=== PATIENT | female | born 1945 | race Caucasian/White ===

== ENCOUNTER 2017-06-04 07:41 | Emergency (ER) | payer OTHER ==
[~2017-06-04] VITALS: Ht 165.1 cm; Wt 124.8 kg
[2017-06-04 09:25] VITALS: BP 141/65
== END 2017-06-04 09:25 | disposition home or self-care (01) ==
LOC: ED 07:41
DX: S81.812A Laceration without foreign body, left lower leg, initial encounter (principal); J45.909 Unspecified asthma, uncomplicated; I48.91 Unspecified atrial fibrillation; Z79.01 Long term (current) use of anticoagulants; Z86.79 Personal history of other diseases of the circulatory system; W54.0XXA Bitten by dog, initial encounter; Y93.89 Activity, other specified; Y99.8 Other external cause status; Y92.89 Other specified places as the place of occurrence of the external cause
CPT/HCPCS: 90715; J0690

== ENCOUNTER 2019-06-16 05:24 | Emergency (ER) | payer OTHER ==
[~2019-06-16] VITALS: Ht 165.1 cm; Wt 124.7 kg
[2019-06-16 07:28] LABS: PLATELET COUNT 359 x10^3mcL (130-400); RED CELL DISTRIBUTION WIDTH 13.3 % (11.5-14.5)
[2019-06-16 07:29] LABS: BASOPHIL % 0 % (0-2)
[2019-06-16 07:49] LABS: CALCIUM 9.9 mg/dL (8.5-10.1); CARBON DIOXIDE 25.9 mmol/L (21-32); CHLORIDE SERUM 101 mmol/L (98-107); CREATININE SERUM 0.7 mg/dL (0.6-1.0); GLUCOSE SERUM 142 mg/dL (74-106); POTASSIUM SERUM 3.9 mmol/L (3.5-5.1); SODIUM SERUM 139 mmol/L (136-145)
[2019-06-16 07:54] LABS: ALKALINE PHOSPHATASE 64 U/L (46-116); ALT/SGPT 19 U/L (14-59); AST/SGOT 13 U/L (15-37); BILIRUBIN TOTAL 1.3 mg/dL (0.20-1.00); LIPASE 48 IU/L (73-393)
[2019-06-16 07:59] LABS: AMYLASE 12 U/L (25-115)
[2019-06-16] MEDS ORDERED: COUMADIN1 MG (08:28)
[2019-06-16] MEDS ORDERED: METOPROLOL SUCC50 M2 (08:28)
[2019-06-16] MEDS ORDERED: NORCO1 TA2 (08:29)
[2019-06-16] MEDS ORDERED: PROVENTIL0.09 MG/A1 (08:29)
[2019-06-16 09:05] VITALS: BP 144/62
[2019-06-16 10:06] LABS: MAGNESIUM 2.1 mg/dL (1.8-2.4); PHOSPHOROUS 3.2 mg/dL (2.5-4.9)
[2019-06-16 10:07] LABS: CHOLESTEROL/HDL RATIO 2.7
[2019-06-16 10:14] LABS: T3 TOTAL 1.09 ng/mL
[2019-06-16 10:15] LABS: FREE T4 1.18 ng/dL (0.76-1.46); FREE THYROXINE INDEX 2.8 ug/dL (1.4-4.5); T4(THYROXINE) 8.3 ug/dL (4.7-13.3)
== END 2019-06-16 09:47 | disposition left against medical advice (07) ==
LOC: ED 05:24
PROVIDERS: Emergency Medicine; Internal Medicine
DX: K56.609 Unspecified intestinal obstruction, unspecified as to partial versus complete obstruction (principal); J45.909 Unspecified asthma, uncomplicated; I48.91 Unspecified atrial fibrillation; Z98.890 Other specified postprocedural states; Z90.710 Acquired absence of both cervix and uterus
CPT/HCPCS: 83880; 84439; J1885; J2405

== ENCOUNTER 2019-06-16 12:01 | Inpatient (IN) | payer OTHER ==
[~2019-06-16] VITALS: Ht 162.6 cm; Wt 116.1 kg
[~2019-06-16 12:01] MED LIST: COUMADIN1 MG; METOPROLOL SUCC50 M2; NORCO1 TA2; PROVENTIL0.09 MG/A1
[2019-06-16 12:05] VITALS: Ht 162.6 cm; Wt 116.1 kg
--- NOTE | 2019-06-16 12:16 | NUR ---
PT PRESENTS TO ED WITH C/O OF ABDOMINAL PAIN. PT WAS SEEN IN ER EARLIER TODAY AND WAS TOLD SHE NEEDED SURGICAL INTERVENTION. PT SIGNED OUT AMA TO SET UP CARE OF ANIMALS. PT RETURNED TO BE ADMITTED TO HOSPITAL. PT CURRENLY DENIES ABDOMINAL PAIN, BUT STILL FEELS BLOATED. PT AAOX4, RESP E/U, ON FULL CM, NO ACUTE DISTRESS NOTED AT THIS TIME.
--- NOTE | 2019-06-16 13:00 | NUR ---
REPORT GIVEN TO MACKENZIE LEWIS ON MED/SURG UNIT TO ASSUME CARE OF PT.
[2019-06-16 13:30] VITALS: BP 102/61
[2019-06-16 13:32] LABS: PHOSPHOROUS 3.6 mg/dL (2.5-4.9)
[2019-06-16 13:33] LABS: CHOLESTEROL/HDL RATIO 2.7
--- NOTE | 2019-06-16 13:33 | NUR ---
RECEIVED PT FROM ED VIA RYAN. ORIENTED PT TO ROOM AND SURROUNDINGS. IV NOTED TO LAC PATENT AND INTACT. INSTRUCTED PT ON THE USE OF CALL LIGHT FOR ASSISTANCE .ENDORSED PT TO PRIMARY NURSE JOSHUA
[2019-06-16 13:41] LABS: FREE T4 1.14 ng/dL (0.76-1.46); FREE THYROXINE INDEX 2.7 ug/dL (1.4-4.5)
[2019-06-16 16:42] VITALS: BP 123/66
--- NOTE | 2019-06-16 18:54 | NUR ---
ALERT AND ORIENTED. NS INFUSING 100 CC HOUR. NEW IV SITE TO LEFT FA LAC WAS NOT INFUSING PROPERLY. NPO FOR SURGERY IN AM SCEDULED FOR 10:30 TO BE PERFORMED BY DR. BAH. PT REFUSED NGT DR. EDWARDSED AWARE. WEARING SCD'S, CONSENT SIGNED, CK LIST STARTED. WAITING FOR URINE FOR STUDIES. CALL LIGHT WITHIN REACH.
--- NOTE | 2019-06-16 19:30 | NUR ---
RECEIVED PT FROM DAY SHIFT RN. PT AAOX4 DENIES PRESTON/DIZZINESS. MED SURG PT DENIES CHEST PAIN/PRESSURE. LUNG SOUNDS CTA ON RA WITH NO SOB NOTED. ABD DISTENDED/ACTIVE BOWEL SOUNDS. DENIES ABD PAIN/N/V. IV LFA PATENT, INFUSING WELL WITH NO SIGNS OF INFILTRATION NOTED. NO SIGNS OF ACUTE DISTRESS. CALL BUTTON WITHIN REACH. SAFETY PRECAUTIONS IN PLACE. WILL CONTINUE TO MONITOR.
[2019-06-16 20:46] VITALS: BP 125/82
--- NOTE | 2019-06-17 01:04 | NUR ---
PT AWAKE DENIES ANY PAIN. NO SIGNS OF DISTRESS NOTED. IV INFUSING WELL. CALL BUTTON WITHIN REACH. SAFETY PRECAUTIONS IN PLACE. WILL MONITOR.
--- NOTE | 2019-06-17 02:30 | NUR ---
BLADDER SCAN DONE ORDERED, APPROXIMATELY [address] OCHOA MADE AWARE. WILL AWAIT FURTHER ORDERS.
--- NOTE | 2019-06-17 05:05 | NUR ---
PT SLEPT ON AND OFF THROUGHOUT THE NIGHT. NO SIGNS OF DISTRESS. BREATHING EVEN AND UNLABORED. IV PATENT AND INFUSING WELL. PT MEDICATED PER EMAR. PT NPO SINCE MIDNIGHT. PT DENIES ANY PAIN. CALL BUTTON WITHIN REACH. SAFETY PRECAUTIONS IN PLACE. WILL CONTINUE TO MONITOR AND ENDORSE CARE TO DAY SHIFT RN.
[2019-06-17 05:46] VITALS: BP 104/56
--- NOTE | 2019-06-17 05:50 | NUR ---
PT VOIDED AT THIS TIME 400 CC OF DARK GRICEL COLOR URINE. UA COLLECTED. DR RAMIREZ MADE AWARE.
[2019-06-17 06:35] LABS: CALCIUM 9.2 mg/dL (8.5-10.1); CARBON DIOXIDE 25.2 mmol/L (21-32); CHLORIDE SERUM 104 mmol/L (98-107); CREATININE SERUM 1.2 mg/dL (0.6-1.0); GLUCOSE SERUM 97 mg/dL (74-106); MAGNESIUM 2.1 mg/dL (1.8-2.4); PHOSPHOROUS 4.4 mg/dL (2.5-4.9); POTASSIUM SERUM 3.5 mmol/L (3.5-5.1); SODIUM SERUM 142 mmol/L (136-145)
[2019-06-17 07:06] LABS: BASOPHIL % 0.1 % (0-2); PLATELET COUNT 332 x10^3mcL (130-400); RED CELL DISTRIBUTION WIDTH 13.9 % (11.5-14.5)
--- NOTE | 2019-06-17 07:40 | NUR ---
PT RESTING. NO SIGNS OF DISTRESS NOTED. ENDORSED CARE TO DAY SHIFT RN, ALL QUESTIONS ADDRESSED.
--- NOTE | 2019-06-17 07:40 | NUR ---
RECEIVED PT FROM MAKE UP OPERATOR HELPER RN. Carol/ANGI. MED SURG. DENIES CHEST PAIN/PRESSURE. RESPIRATIONS EQUAL AND UNLABORED ON RA. DENIES ANY SOB AT THIS TIME. PT DENIES ANY ABDOMINAL PAIN AT THIS TIME. PT DENIES ANY N/V AT THIS TIME. PT STATES SHE VOIDED THIS AM 400 ML OF GRICEL YELLOW URINE NOTED. IV PATENT AND INFUSING TO LAC. NO REDNESS OR SWELLING NOTED. WILL CONTINUE TO MONITOR. CALL LIGHT IN REACH. BED IN LOWEST POSITION.
--- NOTE | 2019-06-17 07:49 | NUR ---
SPOKE WITH DR. BAH. PER DR. BAH PT WILL NOT BE GETTTING SURGERY TODAY DUE TO ELEVATED INR. PER DR. BAH PUT PT ON FULL LIQUID DIET AND ORDER KUB TO BE DONE TODAY. PER DR. BAH WILL ORDER VITAMIN K TO BE GIVEN TODAY.
[2019-06-17 08:32] LABS: microscopic required? YES; urine erythrocyte NEGATIVE (NEGATIVE)
[2019-06-17 08:38] LABS: AMPHETAMINE QUAL UR NONE DETECTED (See below)
[2019-06-17 09:25] VITALS: BP 111/64
--- NOTE | 2019-06-17 10:04 | NUR ---
PT IN BED RESTING. PT UPSET. PT STATES "THIS IS RIDICULOUS. I HAVE BEEN WAITING SINCE TUESDAY FOR SURGERY. THEY TOLD ME IT WAS GOING TO BE DONE THIS MORNING. NOW THE SURGEON SAYS I HAVE TO WAIT TWO DAYS. I HAVE TO WORK AND I HAVE NO ONE TO CHECK ON MY PETS AT HOME" PT STATES "I AM JUST TIRED OF WAITING. I GET WHY I HAVE TO BUT I AM JUST TIRED OF THE BACK AND FORTH" GIVEN PO MEDS. TOLERATED WELL. IV SALINE LOCKED. NO REDNESS OR SWELLING NOTED. WILL CONTINUE TO MONITOR. CALL LIGHT IN REACH. BED IN LOWEST POSITION.
--- NOTE | 2019-06-17 16:20 | NUR ---
PT SITTING UP AT BEDSIDE. PT STILL UPSET. PT STATES "I AM JUST TIRED OF SITTING HERE AND WAITING" PT DENIES ANY N/V. DENIES ANY ABDOMINAL PAIN. IV SALINE LOCKED TO RAC. NO REDNESS OR SWELLING NOTED. WILL CONTINUE TO MONITOR. CALL LIGHT IN REACH. BED IN LOWEST POSITION.
--- NOTE | 2019-06-17 19:15 | NUR ---
RECEIVED PT LAYING IN BED, NO ACUTE DISTRESS OBSERVED, DENIES PAIN OR DISCOMFORT AT THIS TIME. AA/OX4, ABLE TO MAKE NEEDS KNOWN, SPEECH CLEAR AND APPROPRIATE. MED-SURG, NO TELE, DENIES CP OR PRESSURE. PULSES PRESENT AND EQUAL THROUGHOUT, NO EDEMA. BREATHING ON RA, EVEN AND UNLABORED, NO SOB OR DYSPNEA, LUNGS CTA. ABD OBESE AND SOFT WITH ACTIVE BOWEL SOUNDS, DENIES N/V/D. FULL LIQUID DIET, TOLERATING WELL. FREELY VOIDS URINE WITH BRP. AMBULATORY AND ABLE TO REPOSITION SELF IN BED. IV TO LFA IN PLACE, DRY, PATENT, INTACT, S/L AT THIS TIME, NO PAIN, REDNESS OR SWELLING NOTED WHEN FLUSHED WITH NS. COMFORT AND SAFETY MEASURES MAINTAINED. ALL NEEDS ASSESSED AND ATTEDNED TO. CALL LIGHT WITHIN REACH. WILL CONTINUE TO MONITOR
[2019-06-17 20:17] VITALS: BP 100/53
--- NOTE | 2019-06-17 20:53 | NUR ---
PER FREIGHT DISPATCHER, IF PT'S INR LEVEL TOMORROW AM IS NORMAL, DR. BAH WILL PERFORM SURGERY FOLLOWING HIS 1300 CASE. REPAIR OF INCARCERATED VENTRAL HERNIA, POSSIBLE SMALL BOWEL RESECTION. VERIFIED CONSENT TO SURGERY IN CHART AND SIGNED BY PT.
[2019-06-18 06:19] VITALS: BP 131/78
--- NOTE | 2019-06-18 06:30 | NUR ---
NO SCHEDULED TIME FOR SURGERY AT THIS TIME. STILL AWAITING AM INR RESULTS. SIGNED CONSENT IN CHART. CHECKLIST INITIATED. NO OTHER SIGNIFICANT CHANGES TO REPORT. PT COMPLIED WITH NURSING CARE THROUGHOUT THE SHIFT WITH NO ACUTE EVENTS OVERNIGHT. COMFORT AND SAFETY MEASURES MAINTAINED. ALL NEEDS ASSESSED AND ATTENDED TO. CALL LIGHT WITHIN REACH. WILL CONTINUE TO MONITOR AND ENDORSE CARE TO DAY SHIFT NURSE
[2019-06-18 06:55] LABS: BASOPHIL % 0.3 % (0-2); PLATELET COUNT 294 x10^3mcL (130-400); RED CELL DISTRIBUTION WIDTH 13.7 % (11.5-14.5)
[2019-06-18 07:04] LABS: CARBON DIOXIDE 27.2 mmol/L (21-32); CHLORIDE SERUM 106 mmol/L (98-107); CREATININE SERUM 0.8 mg/dL (0.6-1.0); GLUCOSE SERUM 101 mg/dL (74-106); MAGNESIUM 2.1 mg/dL (1.8-2.4); PHOSPHOROUS 3.7 mg/dL (2.5-4.9); POTASSIUM SERUM 3.8 mmol/L (3.5-5.1); SODIUM SERUM 142 mmol/L (136-145)
--- NOTE | 2019-06-18 07:26 | NUR ---
RECEIVED REPORT FROM RANDI MANN. PATIENT RESTING COMFORTABLY IN BED. SALINE LOCK TO LFA IS PATENT AND INTACT. NO REDNESS OR PAIN. PT ON ROOMA AIR. NO C/O SOB AND NO DISTRESS NOTED. ALL QUESTIONS AND CONCERNS ADDRESSED.
[2019-06-18 09:41] VITALS: BP 109/52
--- NOTE | 2019-06-18 11:47 | NUR ---
SPOKE TO DR BAH AND NOTIFIED HIM THAT PATIENT WAS NOT SEEN YET BY CARDILOGIST AND HE SAID THAT THERE IS NO NEED FOR CARDIAC CLEARANCE FOR SURGERY BECAUSE INR IS STABLE. PATIENT AND ATTENDING NURSE TAINA MADE AWARE. PATIENT IS AGREEABLE WITH SURGERY.
--- NOTE | 2019-06-18 13:49 | NUR ---
IN TO SEE PATIENT AFTER LUNCH. PATIENT IS NOT IN ROOM AND HAS BEEN TAKEN DOWN TO OR FOR SURGERY. AWAITING PATIENT RETURN TO FLOOR.
--- NOTE | 2019-06-18 16:32 | NUR ---
RECEIVED REPORT FROM AGUSTINA MANN. PATIENTHAD HERNIA REPAIR WITH INCISION X1 CLOSED WITH SUTURES AND ALBERTA, COVERED WITH 4X4 ABD AND TAPE. SHAE DRAIN IN PLACE IS NOT VISIBLE. 1500 OF LR RECEIVED WITH EBL OF 30. VITALS STABLE (SEE DOCUMENTATION). AWAITING PATIENT RETURN TO FLOOR.
--- NOTE | 2019-06-18 17:02 | NUR ---
PATIENT RETURNED TO FLOOR. PT C/O FEELING SLEEPY AND THIRSTY. PT DENIES PAIN. ALL QUESTIONS AND CONCERNS ADDRESSED. WILL MONITOR.
[2019-06-18 17:11] VITALS: BP 141/81
--- NOTE | 2019-06-18 19:29 | NUR ---
REPORT GIVEN TO ONEYDA MANN. PATIENT RESTING COMFORTABLY IN BED. IV TO RAC IS PATENT AND INTACT. NO REDNESS OR PAIN. PT ON ROOM AIR. NO C/O SOB AND NO DISTRESS NOTED. ALL QUESTIONS AND CONCERNS ADDRESSED.
--- NOTE | 2019-06-18 19:43 | NUR ---
PT RECIEVED AAO REG RESP NO SOB V/S STABLE,IV INFUSING WELL WITH THE SITE PATENT AND INTACT,ABDO IS SOFT OBESE ACTIVE BOWEL SOUNDS,DRESSING AND ABDO BINDER INTACT,BED IN THE LOW POSITION AND LOCKED KEPT CLEAN AND DRY TO TOUCH. MADE COMFORTABLE IN BED,CALL LIGHT EASY REACHED AND WILL CONTINUE TO MONITOR. NO PAIN REPORTED AT THIS TIME,WILL CONTINMUE TO MONITOR.
--- NOTE | 2019-06-18 20:20 | NUR ---
PT WIRH C/O OF SURGICAL ABDO PAIN 5/10 AND CRAMPING IN NATURE,PT WAS MEDICATED WITH DILUADID 1 MG IV GIVEN ORDER AD WILL CONTINUE TO MONITOR.
[2019-06-18 20:49] VITALS: BP 121/63
--- NOTE | 2019-06-18 23:40 | NUR ---
pt sleeping soundly at this time,will continue to monitor.
[2019-06-19 05:36] VITALS: BP 105/56
--- NOTE | 2019-06-19 05:45 | NUR ---
PT WAS HELP OOB TO THE BSC VOIDED DARK GRICEL URINE,ALSO WITH C/O OF SURGICAL ABDO PAIN PAIN,PT WAS MEDICATED WITH DILUADID 1 MG IV ORDER AND WILL CONTINUE TO MONITOR,ABDO SOFT WITH ACTIVE BOWEL SOUNDS NO PASSING GAS OR BURPING AT THIS TIME,DRESSING INTACT AND WILL CONTINUE TO MONITOR.
--- NOTE | 2019-06-19 06:11 | NUR ---
PT RESTING AT THIS TIME,NO CHANGE AT THIS TIME,NO PADDING GAS OR BRUPING ABDOMINAL DRESSING WITH BINDER INTACT,WILL CONTINUE TO MONITOR.
[2019-06-19 06:18] LABS: PLATELET COUNT 326 x10^3mcL (130-400); RED CELL DISTRIBUTION WIDTH 13.7 % (11.5-14.5)
[2019-06-19 07:00] LABS: CALCIUM 8.8 mg/dL (8.5-10.1); CARBON DIOXIDE 26.1 mmol/L (21-32); CHLORIDE SERUM 104 mmol/L (98-107); CREATININE SERUM 0.8 mg/dL (0.6-1.0); GLUCOSE SERUM 133 mg/dL (74-106); MAGNESIUM 1.8 mg/dL (1.8-2.4); PHOSPHOROUS 3.7 mg/dL (2.5-4.9); POTASSIUM SERUM 3.8 mmol/L (3.5-5.1); SODIUM SERUM 140 mmol/L (136-145)
[2019-06-19 07:36] LABS: BASOPHIL % 0 % (0-2)
--- NOTE | 2019-06-19 08:11 | NUR ---
PT RESTING AT THIS TIME,ABDO IS SOFT OBSESE WITH ACTIVE BOWEL SOUNDS DRESSING TO THE ABDO INTACT WITH BINDER,NO PAIN REPORTED AT THIS TIME,HOB,KEPT CLEAN AND DRY TO TOUCH,BED IN THE LOW POSITION AND LOCKED,
--- NOTE | 2019-06-19 08:21 | NUR ---
PT WAS SEEN BY THE RT AND WAS HJELP OOB AND AMBULATE WITH A WALKER IN THE ROOM,PT TOLERATED IT WELL AND WILL CONTINUE TO MONITOR.
--- NOTE | 2019-06-19 08:44 | NUR ---
PT WAS HELP OOB TO THE USE THE BSC AND WAS SITING AT THE SIDE OF THE BED,PT HAS NOT PASS GAS YET,WILL CONTINUE TO MONITOR.
--- NOTE | 2019-06-19 10:00 | NUR ---
PT WAS HELP BACK TO BED AND WILL CONTINUE TO MONITOR.
[2019-06-19 10:48] VITALS: BP 137/75
--- NOTE | 2019-06-19 11:10 | NUR ---
RECEIVED BEDSIDE REPORT FROM MACKENZIE CALL. PT IN BED, RESTING COMFORTABLY. NO S/S RESPIRATORY DISTRESS, PAIN, OR DISCOMFORT NOTED. WILL CONTINUE TO MONITOR.
--- NOTE | 2019-06-19 14:14 | NUR ---
PT REFUSED TO TAKE METOCLOPRAMIDE IVP; EXPLAINED R/B; PT VERBALIZED UNDERSTANDING. WILL CONTINUE TO MONITOR.
--- NOTE | 2019-06-19 16:24 | NUR ---
PT C/O INTERMITTENT ABD PRESSURE AND H/A BOTH 05/16; GIVEN DILAUDID IVP; REPOSITIONED PT, TURNED OFF TV, PULLED DOWN SHADES FOR COMFORT. WILL CONTINUE TO MONITOR.
[2019-06-19 17:49] VITALS: BP 140/86
[2019-06-19 17:54] VITALS: BP 116/70
--- NOTE | 2019-06-19 18:30 | NUR ---
PT IN BED, RESTING COMFORTABLTY. NO RESPIRATORY DISTRESS, PAIN, OR DISCOMFORT NOTED. SIDE RAILS UP X 2, BED IN LOW POSITION. WILL ENDORSE TO NOC SHIFT.
--- NOTE | 2019-06-19 19:40 | NUR ---
RECEIVED PT FROM DAY SHIFT RN. PT IS ALERT AND ORIENTED TO PERSON PLACE TIME AND SITUATION AND ABLE TO FOLLOW COMMANDS. PT DENIES CHEST PAIN OR SHORTNESS OF BREATH AT THIS TIME. PT COMPLAINING OF HEADACHE BUT DENIES ABD PAIN. WILL PROVIDE NONPHARM COMFORT MEASURES TO RELIEVE HEADACHE AND MEDICATED IF NECESSARY PER ORDER. ABD BINDER IN PLACE. CLEAN DRY AND INTACT. PT TOLERATING WELL. THERE IS A RAC IV 22G RUNNING D5 0.45% AT 80ML/HR PT TOLERATING WELL, IV CLEAN DRY AND INTACT. PT GOT UP TO USE THE BEDSIDE COMMODE WITH ASSIST FROM SUPERVISOR PIPELINE. SAFETY MEASURES ARE IN PLACE. CALL LIGHT WITHIN REACH. WILL CONTINUE TO MONITOR PT.
--- NOTE | 2019-06-19 20:54 | NUR ---
PT IS REFUSING 9PM MEDICATIONS: LOVENOX, COLACE, MIRALAX, AND REGLAN. WILL MAKE MD AWARE.
[2019-06-19 21:29] VITALS: BP 115/60
--- NOTE | 2019-06-20 02:30 | NUR ---
PT SITTING UP IN BED READING. NO DISTRESS NOTED. PT DENIES CHEST PAIN OR SHORTNESS OF BREATH AT THIS TIME. NO DISTRESS NOTED. WILL CONINUE TO MONITOR.
[2019-06-20 05:31] VITALS: BP 105/56
--- NOTE | 2019-06-20 06:19 | NUR ---
PT REFUSING LAB DRAW THIS AM. SPOKE WITH PATIENT AND EDUCATED PT ON THE NEED TO DRAW LAB IN ORDER TO ASSESS HER CONDITION THOROUGHLY PT AGREED TO SEE HOW SHE FEELS IN AN HOUR AND THEN DRAW BLOOD. WILL ENDORSE TO DAY SHIFT.
--- NOTE | 2019-06-20 08:08 | NUR ---
RECEIVED PATIENT FROM MACKENZIE ERAZO. PATIENT SEATED AT BEDSIDE, HAS NO COMPLAINTS. SPOKE W PATIENT ABOUT CARE PLAN FOR TODAY. PATIENT AGREES BUT IS UPSET ABOUT NPO STATUS. WILL AWAIT DR BAH TO COME EVALUATE PATIENT. PHARMACY TECHNICIAN INPATIENT SHELTON ALSO PRESENT, WILL COME IN TO SPEAK WITH PATIENT SHORTLY.
[2019-06-20 08:56] VITALS: BP 140/75
[2019-06-20 09:15] LABS: BASOPHIL % 0.3 % (0-2); PLATELET COUNT 319 x10^3mcL (130-400); RED CELL DISTRIBUTION WIDTH 13.6 % (11.5-14.5)
[2019-06-20 09:18] LABS: CALCIUM 9.2 mg/dL (8.5-10.1); CARBON DIOXIDE 29.7 mmol/L (21-32); CHLORIDE SERUM 103 mmol/L (98-107); CREATININE SERUM 0.9 mg/dL (0.6-1.0); GLUCOSE SERUM 140 mg/dL (74-106); MAGNESIUM 1.8 mg/dL (1.8-2.4); PHOSPHOROUS 3.3 mg/dL (2.5-4.9); POTASSIUM SERUM 3.5 mmol/L (3.5-5.1); SODIUM SERUM 139 mmol/L (136-145)
--- NOTE | 2019-06-20 12:22 | NUR ---
PATIENT SEATED IN BED, STATES THAT HER BACK IS HURTING DUE TO POSITIONING. STATES SHE NORMALLY SLEEPS ON HER SIDE. DENIES WANTING ANY PRN PAIN MEDICATIONS. NO OTHER COMPLAINTS AT THIS TIME. DR BAH ALREADY IN W PATIENT TO CHANGE ABDOMINAL DRESSING TODAY, ALBERTA ARE CDI. WILL CONTINUE TO MONITOR.
[2019-06-20 16:15] VITALS: BP 148/79
--- NOTE | 2019-06-20 18:33 | NUR ---
PATIENT SEATED AT BEDSIDE AT THIS TIME. FINISHED AND TOLERATED CLEAR LIQUID DIET. NO OTHER COMPLAINTS AT THIS TIME. WILL ENDORSE TO ONCOMING NURSE THAT PATIENT LIKELY TO BE DC TUESDAY PER DR BAH. CALL LIGHT IN REACH.
--- NOTE | 2019-06-20 19:40 | NUR ---
RECEIVED REPORT FROM OTILIA ESTES. PT SITTING IN BED. PT AAOX4, FOLLOWS COMMANDS. ABLE TO MAKE NEEDS KNOWN. MED-SURG. DENIES CP/PRESSURE AT THIS TIME. PALPABLE PULSES TO ALL EXTREMETIES. EDEMA TO BLE NOTED. LUNG SOUNDS CTA. BREATHING EVEN AND UNLABORED ON RA. DENIES SOB. NO ACUTE DISTRESS NOTED. AND SOFT AND DISTENDED. HYPOACTIVE BS X4 QUAD. STATED PASSING GAS AND BURPING. LAST BM 06/16/19. VOID FREELY ON BC. GENERALIZED WEAKNESS. AMBULATORY WITH ASSIST. ABD INCISION WITH ALBERTA COVERED WITH DRESSING. DRESSING CDI. ABD BINDER IN PLACE. IV TO RAC INFUSING WELL. SITE FREE FROM REDNESS AND SWELLING. BED AT LOWEST SETTING. SIDE RAILS X2 UP. CALL LIGHT WITHING REACH. WILL CONTINUE TO MONITOR.
[2019-06-20 20:11] VITALS: BP 143/63
--- NOTE | 2019-06-20 22:20 | NUR ---
PT REFUSED PM MEDS EXCEPT METOPROLOL AND MIRALAX. PT EDUCATED ON MEDICATIONS, PT STATES UNDERSTANDING. STILL REFUSES TO TAKE MEDS. WILL CONTINUE TO MONITOR.
--- NOTE | 2019-06-21 00:24 | NUR ---
PT LAYING DOWN IN BED WITH EYES CLOSED. HOB ELEVATED. BREATHING EVEN AND UNLABORED ON RA. NO ACUTE DISTRESS NOTED. D5 1/2 NS RUNNING TO RAC AT 80ML/HR. BED AT LOWEST SETTING. SIDE RAILS X2 UP. CALL LIGHT WITHING REACH. WILL CONTINUE TO MONITOR.
--- NOTE | 2019-06-21 05:15 | NUR ---
PT C/O 03/16 PRESTON PAIN. MEDICATED WITH PRN TYLENOL PER JAN. WILL CONTINUE TO MONITOR.
[2019-06-21 05:45] VITALS: BP 104/54
--- NOTE | 2019-06-21 05:51 | NUR ---
PT STAYED AWAKE MOST OF THE NIGHT. STATES HAVING DIFFICULTY SLEEPING SINCE SHE WAS ADMITTED. BREATHING EVEN AND UNLABORED ON RA. NO ACUTE DISTRESS NOTED. NO SIGNIFICANT CHANGES DURING SHIFT. ALL NEEDS ASSESSED AND ATTENDED TO. BED AT LOWEST SETTING. SIDE RAILS X2 UP. CALL LIGHT WITHING REACH. WILL ENDORSE CARE TO AM NURSE.
--- NOTE | 2019-06-21 06:51 | NUR ---
PT REFUSING TO GET BLOOD DRAWN. PAGE RESIDENT TO INFORM ABOUT PT REFUSAL. AWAITING FOR DR TO CALL BACK. WILL ENDORSE CARE TO AM NURSE.
--- NOTE | 2019-06-21 07:07 | NUR ---
RECEIVED PATIENT AWAKE/ALERT IN BED, DENIES PAIN AT THIS TIME. M/S PT. IV TO RAC INTACT AND INFUSING WELL; ABD INCISION COVER W/ DRESSING CDI, W/ ABD BINDER IN PLACE. POC EXPLAINED. PER REPORT PATIENT REFUSED BLOOD DRAW IN AM. CALL LIGHT WITHIN REACH.
[2019-06-21 08:26] VITALS: BP 123/75
--- NOTE | 2019-06-21 10:00 | NUR ---
INFORM STRADDLE BUGGY OPERATOR SHELTON PATIENT REFUSED COLACE AND MIRALAX STATED "I HAVE NOT BEEN EATING AND THERE IS NOTHING TO POOP." PATIENT WANT TO KNOW IF SHE GET A DIFFERENT DIET.
--- NOTE | 2019-06-21 11:03 | NUR ---
AUTO GARAGE MECHANIC HERE ATTEMPT TO DRAW BLOOD FOR PT/INR. PATIENT FINALLY AGREE TO DRAW BLOOD FOR MORNING LABS. MERLYN HUA AT BEDSIDE TO SPEAK TO PATIENT.
[2019-06-21 11:15] LABS: BASOPHIL % 0.1 % (0-2); PLATELET COUNT 330 x10^3mcL (130-400); RED CELL DISTRIBUTION WIDTH 13.3 % (11.5-14.5)
[2019-06-21 11:35] LABS: CALCIUM 9.1 mg/dL (8.5-10.1); CHLORIDE SERUM 104 mmol/L (98-107); CREATININE SERUM 0.8 mg/dL (0.6-1.0); GLUCOSE SERUM 118 mg/dL (74-106); POTASSIUM SERUM 3.3 mmol/L (3.5-5.1); SODIUM SERUM 142 mmol/L (136-145)
--- NOTE | 2019-06-21 11:52 | NUR ---
INFORM SURFACE GRINDER TENDER SHE[place]TON [place] 3.3; PATIENT SAT UP AT SIDE OF BED, DENIES PAIN AT THIS TIME. ANCEF 1 GM IVPB INFUSING TO RAC IV PATENT. NEEDS MET. CALL LIGHT WITHIN REACH.
--- NOTE | 2019-06-21 12:47 | NUR ---
PATIENT SAT UP IN BED, C/O PRESTON 05/16 TYLENOL 650MG PO, PATIENT EATING HER LUNCH. NEEDS MET. CALL LIGHT WITHIN REACH.
--- NOTE | 2019-06-21 14:32 | NUR ---
PATIENT SAT UP AT SIDE OF BED , KCL 40MEQ PO GIVEN FOR K 3.3 ORDERED, PT REFUSED REGLAN, PT UP TO BATHROOM INDEPENDENTLY. NO ASSIST NEEDED.
[2019-06-21 15:59] VITALS: BP 115/73
--- NOTE | 2019-06-21 17:33 | NUR ---
PATIENT SAT UP AT SIDE OF BED EATING HER DINNER, NO PAIN ATT THIS TIME. C/O ABOUT HER FOODS BUT OFFERED TO CHANGE PATIENT SAID NEVER MIND, COUMADIN 10MG PO GIVEN, INR 1.2 AND ANCEF 1GM IVPB INFUSING WELL TO RAC IV PATENT. NEEDS MET. CALL LIGHT WITHIN REACH
--- NOTE | 2019-06-21 19:35 | NUR ---
RECEIVED REPORT FROM OTILIA ESTES. PT SITTING IN BED. PT AAOX4, FOLLOWS COMMANDS. ABLE TO MAKE NEEDS KNOWN. MED-SURG. DENIES CP/PRESSURE AT THIS TIME. PALPABLE PULSES TO ALL EXTREMETIES. EDEMA TO BLE NOTED. LUNG SOUNDS CTA. BREATHING EVEN AND UNLABORED ON RA. DENIES SOB. NO ACUTE DISTRESS NOTED. ABD SOFT AND DISTENDED. HYPOACTIVE BS X4 QUAD. STATES HAVING A SM BM TODAY WITH LOOSE STOOL. VOID FREELY ON BC. GENERALIZED WEAKNESS. AMBULATORY WITH ASSIST. ABD INCISION WITH ALBERTA COVERED WITH DRESSING. DRESSING CDI. ABD BINDER IN PLACE. IV TO RAC INFUSING D5/0.45 NS AT 80ML/HR. SITE FREE FROM REDNESS AND SWELLING. BED AT LOWEST SETTING. SIDE RAILS X2 UP. CALL LIGHT WITHING REACH. WILL CONTINUE TO MONITOR.
[2019-06-21 20:42] VITALS: BP 126/87
[2019-06-21 21:03] VITALS: BP 101/53
--- NOTE | 2019-06-22 00:20 | NUR ---
PT AWAKE SITTING ON BED. C/O IV LEAKING. IV FLUIDS STOPPED. INFORMED PT THE NEED TO REINSERT A NEW IV. PT REFUSES TO HAVE A NEW IV PUT IN. STATES " I AM LEAVING TOMORROW, I DO NOT NEED ANOTHER ONE". INFORMED PT, REGARDING THE ABX DOSE DUE IN THE MORNING. STILL REFUSES. NO ACUTE DISTRESS NOTED. BED AT LOWEST SETTING. SIDE RAILS X2 UP. CALL LIGHT WITHING REACH. WILL CONTINUE TO MONITOR.
[2019-06-22 05:38] VITALS: BP 114/59
--- NOTE | 2019-06-22 06:32 | NUR ---
PT STAYED AWAKE MOST OF THE NIGHT. BREATHING EVEN AND UNLABORED ON RA. NO ACUTE DISTRESS NOTED. PT REFUSED TO GET BLOOD DRAWN THIS MORNING. CONTINUES TO REFUSED NEW IV INSERTION FOR MORNING IV ABX. DR JAIMES MADE AWARE. SPOKE TO PT, PT STILL REFUSES TX. BED AT LOWEST SETTING. SIDE RAILS X2 UP. CALL LIGHT WITHING REACH. WILL ENDORSE CARE TO AM NURSE.
--- NOTE | 2019-06-22 06:35 | NUR ---
PHYSICAL THERAPY DAILY NOTES CO-SIGN All documentation done by the Washer Assembler for 06/21/19 has been reviewed. I agree with the documentation. Reviewed/Co-Signed by: Anuja Cantu PT Documentation Done by:JUAN ANTHONY PTA
--- NOTE | 2019-06-22 08:00 | NUR ---
RECEIVED PATIENT ALERT AND ORIENTED AND ANXIOUS ABUOT HER STAY. SHE WANTS TO GO HOME AND DOES NOT WANT ANY FURTHER IV OR INJECTIONS OR BLOOD DRAWS. PATIENT AHS CLEAR BREATH SOUND SAND NOTED EDEMA OF 2 PLUS TO THE LOWER EXTREMTIES. SHE HAS BEEN UP BUT HAS FWB. HX OF MILD CARDIOMEGALY AND WITH HISTORY OF OA, ABDOMINAL CYST, HERNIA REPAIR, SALPINGO OOPHERECTOMY, AND AN APPENDECTOMY. PATIENT ALSO WITH HISTORY OF A FIB AND SHE IS GROSSLY OBESE. PATIEN THAS BEEN PASSING GAS AND THE PATIENT HAS HAD A SMALL BM. SHE HAS INCISION TO THE ABDOMEN WITH ALBERTA AND WITH ABDOMINAL BINDER IN PLACE. SHE HAS BEEN USING THE BSC OR THE RESTROOM. PATIENT HAD AN INCARCERATED VENTRAL HERNIA. SHE DENIES ANY ACUTE DISTRESS AT THIS TIME. SHE JUST WANTS TO GO HOME.
[2019-06-22 09:48] VITALS: BP 140/64
--- NOTE | 2019-06-22 11:02 | NUR ---
PATIENT HAS BEEN REFUSING BLOOD DRAWS AND SQ INJECTIONS OR AN IV. IS AWARE PER THE CEMENT CAR DUMPER. SHE HAS A FEAR OF NEEDLES PER HER OWN WORDS. SHE HAS REFUSED THE MEDICATION FOR HER BOWEL WELL. STATES SHE IS GOING HOME TODAY. ORDERS IN PLACE AND WILL SEND HOME INDICATED.
[2019-06-22 11:45] VITALS: BP 140/64
--- NOTE | 2019-06-22 13:01 | NUR ---
PATIENT WAS SEEN BY DR BAH AND CLEARED TO RETURN TO WORK. PATIENT IS ANXIOUS TO GO HOME. GAVE ALL PAPERWORK INDICATED. THE DRESSING WAS CHANGED BY THE SURGEON AND PICTURE TAKEN AND GAVE DRESSING FOR CHANGES AT HOME. AWAITIN HER TO FINISH LUNCH AND IV AND BANDS REMOVED INDICATED.
--- NOTE | 2019-06-22 14:55 | NUR ---
PHYSICAL THERAPY NOTE ATTEMPTED TO SEE PATIENT FOR FOLLOW UP SESSIONS. PATIENT INDICATED SHE IS INDEPENDENTLY WALKING AROUND, GOING TO THE BATHROOM. STATES SHE DOES NOT NEED PHYSICAL THERAPY SERVICES. D/C FROM PHYSICAL THERAPY, END TO NSG.
== END 2019-06-22 13:23 | disposition home or self-care (01) | DRG 353 ==
LOC: ED 12:01 → MU 12:22
PROVIDERS: Internal Medicine; Surgery; ADMIT Internal Medicine
PROC: 0WUF0JZ Supplement Abdominal Wall with Synthetic Substitute, Open Approach (ICD-10-PCS; principal; 2019-06-18 13:45)
DX: K43.6 Other and unspecified ventral hernia with obstruction, without gangrene (principal); N17.0 Acute kidney failure with tubular necrosis; Z68.41 Body mass index [BMI] 40.0-44.9, adult; I48.91 Unspecified atrial fibrillation; M19.90 Unspecified osteoarthritis, unspecified site; J45.909 Unspecified asthma, uncomplicated; Z79.891 Long term (current) use of opiate analgesic; E66.9 Obesity, unspecified; Z79.01 Long term (current) use of anticoagulants; E78.5 Hyperlipidemia, unspecified
CPT/HCPCS: 83880; 84439; 97110-GP; 97116-GP; 97530-GP; C1781; G0378; J0330; J0690; J1170; J1580; J1650; J1885; J2405; J2704; J2710; J2765; J3010; J3430; J3490; J3535; J7030; J7120; Q0092

== ENCOUNTER 2019-08-10 09:56 | Emergency (ER) | payer OTHER ==
[~2019-08-10] VITALS: Ht 162.6 cm; Wt 116.6 kg
[2019-08-10 10:05] VITALS: Ht 162.6 cm; Wt 116.6 kg
[2019-08-10 11:52] VITALS: BP 129/81
== END 2019-08-10 11:52 | disposition home or self-care (01) ==
LOC: ED 09:56
DX: S61.251A Open bite of left index finger without damage to nail, initial encounter (principal); S00.11XA Contusion of right eyelid and periocular area, initial encounter; J45.909 Unspecified asthma, uncomplicated; I48.91 Unspecified atrial fibrillation; Z98.890 Other specified postprocedural states; M19.90 Unspecified osteoarthritis, unspecified site; W55.01XA Bitten by cat, initial encounter; Y93.89 Activity, other specified; Y92.89 Other specified places as the place of occurrence of the external cause; Y99.8 Other external cause status

== ENCOUNTER 2019-11-21 02:23 | Inpatient (IN) | payer OTHER ==
[~2019-11-21] VITALS: Ht 165.1 cm; Wt 118.6 kg
[2019-11-21 02:31] VITALS: Ht 165.1 cm; Wt 118.6 kg
[2019-11-21 04:01] LABS: BASOPHIL % 0.1 % (0-2); PLATELET COUNT 346 x10^3mcL (130-400)
[2019-11-21 04:02] LABS: RED CELL DISTRIBUTION WIDTH 14.8 % (11.5-14.5)
[2019-11-21 04:06] LABS: CALCIUM 9.1 mg/dL (8.5-10.1); CARBON DIOXIDE 28.5 mmol/L (21-32); CHLORIDE SERUM 100 mmol/L (98-107); CREATININE SERUM 1.1 mg/dL (0.6-1.0); GLUCOSE SERUM 175 mg/dL (74-106); POTASSIUM SERUM 4.5 mmol/L (3.5-5.1); SODIUM SERUM 136 mmol/L (136-145)
[2019-11-21 04:12] LABS: ALBUMIN 3.7 g/dL (3.4-5.0); ALKALINE PHOSPHATASE 92 U/L (46-116); ALT/SGPT 171 U/L (14-59); AST/SGOT 305 U/L (15-37); BILIRUBIN TOTAL 1.7 mg/dL (0.20-1.00); TOTAL PROTEIN, SERUM 7.7 g/dL (6.4-8.2)
[2019-11-21 04:14] LABS: AMYLASE 880 U/L (25-115)
[2019-11-21 04:33] LABS: LIPASE 13145 IU/L (73-393)
[2019-11-21 09:16] VITALS: BP 144/81
[2019-11-21 16:48] VITALS: BP 117/58
[2019-11-21 20:40] VITALS: BP 126/67
[2019-11-22 05:22] VITALS: BP 146/74
[2019-11-22 07:01] LABS: BASOPHIL % 0.3 % (0-2); PLATELET COUNT 248 x10^3mcL (130-400); RED CELL DISTRIBUTION WIDTH 14.4 % (11.5-14.5)
[2019-11-22 07:18] LABS: CARBON DIOXIDE 27.9 mmol/L (21-32); CHLORIDE SERUM 106 mmol/L (98-107); GLUCOSE SERUM 106 mg/dL (74-106); POTASSIUM SERUM 3.6 mmol/L (3.5-5.1); SODIUM SERUM 140 mmol/L (136-145)
[2019-11-22 07:19] LABS: CALCIUM 8.6 mg/dL (8.5-10.1); CREATININE SERUM 0.8 mg/dL (0.6-1.0)
[2019-11-22 07:44] LABS: TOTAL PROTEIN, SERUM 6.7 g/dL (6.4-8.2)
[2019-11-22 07:45] LABS: ALBUMIN 3.1 g/dL (3.4-5.0); BILIRUBIN DIRECT 0.47 mg/dL (0.0-0.2); BILIRUBIN TOTAL 1.7 mg/dL (0.20-1.00)
[2019-11-22 08:58] VITALS: BP 147/72
[2019-11-22 09:35] VITALS: BP 147/72
[2019-11-22 12:43] VITALS: BP 147/72
[2019-11-22 12:46] VITALS: BP 147/72
== END 2019-11-22 13:23 | disposition left against medical advice (07) | DRG 438 ==
LOC: ED 02:23 → MU 07:10
PROVIDERS: Emergency Medicine; Surgery; ADMIT Internal Medicine
DX: K85.10 Biliary acute pancreatitis without necrosis or infection (principal); N17.0 Acute kidney failure with tubular necrosis; K80.20 Calculus of gallbladder without cholecystitis without obstruction; I48.91 Unspecified atrial fibrillation; I10 Essential (primary) hypertension; J45.909 Unspecified asthma, uncomplicated; M19.90 Unspecified osteoarthritis, unspecified site; E66.01 Morbid (severe) obesity due to excess calories; Z79.01 Long term (current) use of anticoagulants
CPT/HCPCS: C9113; G0378; J2270; J2405; J2543; J3430; J7042; Q0092; Q0162